=== PATIENT | male | born 1970 | race Caucasian/White ===

== ENCOUNTER 2019-07-20 07:45 | Observation (INO) ==
[2019-07-20] MEDS ORDERED: NS 1,000 ML IV ONE ×2 (08:00)
[2019-07-20] MEDS ORDERED: DUONEB (A & A) INH ONE ×2 (08:01→11:25)
--- NOTE | 2019-07-20 08:07 | PROVIDER DOCUMENTATION ---
HPI-Respiratory General - General Chief Complaint: SEPSIS ALERT - D Stated Complaint: SOB Time Seen by Provider: 07/20/19 08:00 Source: patient Allergies/Adverse Reactions: Patient Allergies Allergy/AdvReac Type Severity Reaction Status Date / Time No Known Allergies Allergy Verified 07/20/19 08:05 Home Medications: Home Medication List Medication Instructions Recorded Confirmed Last Taken Type NK [No Home Medications] 07/20/19 07/20/19 Unknown History - History of Present Illness-Resp Nature of Presenting Problem: Patient has had trouble breathing since Sunday. He has fever and cough. H e smokes, but denies vaping. Denies travel. Cough is nonproductive Quality of Pain: reports: none Severity in ED: reports: severe Onset/Duration: reports: 3 days ago Timing: reports: still present Context: denies: recent foreign travel, insect bite (possible tick), recent chemotherapy, multiple patients with similar complaints, recent URI, out of meds, sports/exercise, aspiration/choking, other Exposure: reports: unknown cause Cough Quality/Degree: reports: moderate, dry cough Episode Frequency: rare episodes Current Respiratory Medication Therapy: Initiated none Modifying Factors: improves with: nothing Associated Symptoms: reports: cough, shortness of breath, wheezing Similar Symptoms Previously?: No Recently seen or treated by another doctor?: No Review of Systems - Adult - REVIEW OF SYSTEMS - ADULT Constitutional: reports: chills, fever Eyes: reports: no symptoms reported Ears, Nose, Mouth & Throat: reports: no symptoms reported Cardiovascular: reports: no symptoms reported Respiratory: reports: see HPI Gastrointestinal: reports: no symptoms reported Genitourinary: reports: no symptoms reported Musculoskeletal: reports: no symptoms reported Integumentary: reports: no symptoms reported Neurological: reports: no symptoms reported Psychiatric: reports: no symptoms reported Endocrine: reports: no symptoms reported Hematologic/Lymphatic: reports: no symptoms reported Allergic/Immunologic: reports: hay fever (occationally) Past History - Adult - PAST MEDICAL HISTORY-ADULT Review of Records: reports: Old Records Reviewed, Nursing Assessment Review Physical Exam-General - PHYSICAL EXAM-ADULT Initial Vital Signs Reviewed: Yes - CONSTITUTIONAL General Appearance: moderate distress - EYES Eyes: PERRL/EOMI, pink conjunctivae - HEAD, EARS, NOSE, MOUTH & THROAT HENMT: normocephalic/atraumatic, moist mucous membranes, normal ENT inspection, TMs normal, pharynx normal - NECK Neck: non-tender, full range of motion, supple - RESPIRATORY Respiratory: accessory muscle use, wheezing - CARDIOVASCULAR Cardiovascular: normal peripheral pulses, regular rate, rhythm, no edema, no gallop, no JVD, no murmur - GASTROINTESTINAL (ABDOMEN) Abdominal Exam: normal bowel sounds, non tender, soft - LYMPHATIC Lymphatic: no adenopathy - MUSCULOSKELETAL Back Exam: normal inspection, no CVA tenderness, no vertebral tenderness Extremity: normal range of motion, non-tender, normal gait - SKIN Integumentary: normal color, diaphoresis - NEUROLOGIC Neurologic: grossly normal - PSYCHIATRIC Psych/Mental Status: normal mood/affect Progress - PLAN OF CARE/RESULTS Progress/Plan/Lab Results: Vital Signs - 8 hr 07/20/19 07:49 07/20/19 08:23 07/20/19 08:53 Temperature 100.9 F H Pulse Rate 111 H 112 H 103 H Respiratory Rate 30 H 22 26 H Blood Pressure 154/91 124/76 O2 Sat by Pulse Oximetry 88 L 94 L 94 L 07/20/19 09:34 07/20/19 10:21 07/20/19 11:19 Temperature 101.1 F H 99 F 99.3 F Pulse Rate 97 H 91 H 96 H Respiratory Rate 24 24 39 H Blood Pressure 109/72 112/75 133/90 O2 Sat by Pulse Oximetry 93 L 95 89 L 07/20/19 08:05 Influenza Screen - Final Nasopharyngeal Laboratory Results - last 24 hr 07/20/19 07/20/19 07/20/19 08:06 08:06 08:06 WBC RBC Hgb Hct MCV MCH MCHC RDW Std Deviation Plt Count MPV Immature Gran % (Auto) Neut % (Auto) Lymph % (Auto) [place] % (Auto) Eos % (Auto) Baso % (Auto) Immature Gran # (Auto) Neut # (Auto) Lymph # (Auto) [place] # (Auto) Eos # (Auto) Baso # (Auto) PT INR PTT (Actin FS) Specimen Type Sample Site pH pCO2 pO2 HCO3 Base Excess Oxyhemoglobin ABG O2 Sat (Calculated) ABG O2 Saturation ABG Carboxyhemoglobin ABG Methemoglobin Ty Test A-a O2 Difference Total Hemoglobin Lactate Liter Flow Blood Gas Modality FiO2 % Sodium 132 L Potassium 4.1 Chloride 96 L Carbon Dioxide 21 L Anion Gap 15 BUN 13 Creatinine 0.9 Estimated GFR/1.73 m2 > 60 BUN/Creatinine Ratio 14 Glucose 124 H Calculated Osmolality 266 Calcium 9.0 Total Bilirubin 0.40 AST 30 ALT 30 Alkaline Phosphatase 99 Creatine Kinase 298 H Creatine Kinase Index 1.4 CK-MB (CK-2) 4.08 Troponin T High Sens 7 Total Protein 7.3 Albumin 4.7 Globulin 2.6 Albumin/Globulin Ratio 1.8 Plasma Lactate 1.0 Urine Source Urine Color Urine Turbidity Urine pH Ur Specific [place] Urine Protein Ur Glucose (Stick) Ur Ketones (Stick) Urine Blood Urine Nitrite Urine Bilirubin Urobilinogen Dipstick Urine Leukocytes Urine WBC (Auto) Urine RBC (Auto) U Epithel Cells (Auto) Urine Bacteria (Auto) 07/20/19 07/20/19 07/20/19 08:06 08:06 08:10 WBC 11.85 H RBC 5.54 Hgb 17.1 Hct 51.4 MCV 92.8 MCH 30.9 MCHC 33.3 RDW Std Deviation 13.0 Plt Count 239 MPV 10.7 H Immature Gran % (Auto) 0.3 Neut % (Auto) 86.4 H Lymph % (Auto) 5.1 L [place] % (Auto) 7.9 Eos % (Auto) 0.0 Baso % (Auto) 0.3 Immature Gran # (Auto) 0.03 Neut # (Auto) 10.24 H Lymph # (Auto) 0.61 L [place] # (Auto) 0.94 H Eos # (Auto) 0.00 Baso # (Auto) 0.03 PT 13.8 INR 1.05 PTT (Actin FS) 27.6 Specimen Type ARTERIAL Sample Site R RADIAL pH 7.41 pCO2 36 pO2 65 HCO3 23.7 Base Excess -1.3 Oxyhemoglobin 92.5 L ABG O2 Sat (Calculated) 23.1 H ABG O2 Saturation 96.3 ABG Carboxyhemoglobin 2.90 H ABG Methemoglobin 1.0 Ty Test YES A-a O2 Difference 118.0 Total Hemoglobin 17.8 H Lactate 1.00 Liter Flow 3.0 Blood Gas Modality [place]ULA FiO2 % 32.0 Sodium Potassium Chloride Carbon Dioxide Anion Gap BUN Creatinine Estimated GFR/1.73 m2 BUN/Creatinine Ratio Glucose Calculated Osmolality Calcium Total Bilirubin AST ALT Alkaline Phosphatase Creatine Kinase Creatine Kinase Index CK-MB (CK-2) Troponin T High Sens Total Protein Albumin Globulin Albumin/Globulin Ratio Plasma Lactate Urine Source Urine Color Urine Turbidity Urine pH Ur Specific [place] Urine Protein Ur Glucose (Stick) Ur Ketones (Stick) Urine Blood Urine Nitrite Urine Bilirubin Urobilinogen Dipstick Urine Leukocytes Urine WBC (Auto) Urine RBC (Auto) U Epithel Cells (Auto) Urine Bacteria (Auto) 07/20/19 08:40 WBC RBC Hgb Hct MCV MCH MCHC RDW Std Deviation Plt Count MPV Immature Gran % (Auto) Neut % (Auto) Lymph % (Auto) [place] % (Auto) Eos % (Auto) Baso % (Auto) Immature Gran # (Auto) Neut # (Auto) Lymph # (Auto) [place] # (Auto) Eos # (Auto) Baso # (Auto) PT INR PTT (Actin FS) Specimen Type Sample Site pH pCO2 pO2 HCO3 Base Excess Oxyhemoglobin ABG O2 Sat (Calculated) ABG O2 Saturation ABG Carboxyhemoglobin ABG Methemoglobin Ty Test A-a O2 Difference Total Hemoglobin Lactate Liter Flow Blood Gas Modality FiO2 % Sodium Potassium Chloride Carbon Dioxide Anion Gap BUN Creatinine Estimated GFR/1.73 m2 BUN/Creatinine Ratio Glucose Calculated Osmolality Calcium Total Bilirubin AST ALT Alkaline Phosphatase Creatine Kinase Creatine Kinase Index CK-MB (CK-2) Troponin T High Sens Total Protein Albumin Globulin Albumin/Globulin Ratio Plasma Lactate Urine Source CLEAN CATCH Urine Color YELLOW Urine Turbidity CLEAR Urine pH 6.0 Ur Specific [place] 1.026 Urine Protein 70 A Ur Glucose (Stick) NEGATIVE Ur Ketones (Stick) TRACE A Urine Blood MODERATE A Urine Nitrite NEGATIVE Urine Bilirubin NEGATIVE Urobilinogen Dipstick NORMAL Urine Leukocytes NEGATIVE Urine WBC (Auto) <10 Urine RBC (Auto) <10 U Epithel Cells (Auto) <10 Urine Bacteria (Auto) NEGATIVE Orders Category Date Time Status Cardiac Monitoring DIRECTED Care 07/20/19 07:54 Active IV Insertion ORDERED Care 07/20/19 07:54 Completed Notify MD of + Sepsis Screen NOW Care 07/20/19 07:54 Active Notify Physician As Ordered Care 07/20/19 07:54 Active CHEST-1 VIEW [RAD] Stat Exams 07/20/19 07:54 Completed ABG [RESP] Routine Lab 07/20/19 08:10 Completed BLOOD CULTURE [BLDCUL] Stat Lab 07/20/19 08:02 Results CBC WITH DIFF [HEME] Stat Lab 07/20/19 08:06 Completed CK PROFILE [SP CHEM] Stat Lab 07/20/19 08:06 Completed COMPREHENSIVE METABOLIC PANEL [CHEM] Stat Lab 07/20/19 08:06 Completed INFLUENZA SCREEN A/B Stat Lab 07/20/19 08:05 Completed LACTATE, PLASMA [CHEM] Lab 07/20/19 08:06 Completed LACTATE, PLASMA [CHEM] Lab 07/20/19 11:00 Received LACTATE, PLASMA [CHEM] Lab 07/20/19 14:00 Uncollected PROTIME WITH INR [COAG] Stat Lab 07/20/19 08:06 Completed PTT [COAG] Stat Lab 07/20/19 08:06 Completed TROPONIN T HIGH SENSITIVITY Stat Lab 07/20/19 08:06 Completed URINALYSIS W/POSS RFLX CULT [URINALYSIS] Stat Lab 07/20/19 08:40 Completed 0.9% Sodium Chloride Inj [Ns] 1,000 ml Med 07/20/19 08:00 Discontinued IV 999 mls/hr 0.9% Sodium Chloride Inj [Ns] 1,000 ml Med 07/20/19 08:00 Discontinued IV 999 mls/hr Acetaminophen [Tylenol] Med 07/20/19 08:25 Discontinued 1,000 mg PO NOW ONE Albuterol 2.5MG/Ipratrop 0.5MG [Duoneb (A & A)] Med 07/20/19 08:01 Discontinued 3 ml INH NOW ONE Albuterol 2.5MG/Ipratrop 0.5MG [Duoneb (A & A)] Med 07/20/19 11:25 Discontinued 3 ml INH NOW ONE Dexamethasone [Decadron] Med 07/20/19 11:26 Discontinued 10 mg IV NOW ONE Aerosol Treatments Routine Oth 07/20/19 08:01 Completed Aerosol Treatments Routine Oth 07/20/19 11:26 Active Aerosol Treatments Stat Oth 07/20/19 08:01 Completed Aerosol Treatments Stat Oth 07/20/19 11:26 Active Oxygen Device Stat Oth 07/20/19 07:54 Completed EKG [EKG] Stat Ther 07/20/19 07:54 Draft Result Diagrams: 07/20/19 08:06 07/20/19 08:06 - REASSESSMENT Reassessment #1 Time Reassessed: 11:18 Status: unchanged (Crackles in both lung jiang. Oxygen desaturation when off supplamental O2) - EKG 1 Time of EKG reading by physician:: 08:24 EKG Read and Signed by:: Lang West EKG Interpretation (*Must complete 3 of following elements*): Normal Rate: 106 Rhythm: sinus [place]: normal QRS: normal DE Interval: normal ST Wave: normal - CONSULTS/PCP/HOSPITALIST Notification #1 *Consult/PCP/Hospitalist*: Margo LIM Time Discussed: 11:32 (Dr Mann) Consult Disposition: Will see in ED Departure - Departure Date of Disposition Decision: 07/20/19 Time of Disposition Decision: 11:32 DIAGNOSIS: Hypoxemia Fever Qualifiers: Fever type: due to other condition Qualified Code(s): R50.81 - Fever presenting with conditions classified elsewhere Disposition: ADMITTED INPATIENT 09 Certified Medical Emergency: Emergent Condition: Fair Referrals and Follow-Ups: None,PCP [Primary Care Provider] - - Critical Care Note This patient required my direct & personal management of CC.: No Attestation - Physician/ MOLLY Attestation Patient care was provided by Advanced Practice Provider:: No The physician spent face to face time with patient:: Yes Advanced Practice Provider documentation review:: Supervising physician onsite and consulted in the evaluation and care of this patient. The physician did have a face to face encounter with the patient.
[2019-07-20 08:17] LABS: ALLEN TEST YES; BE -1.3 mmoll (-3.0-3.0); BLOOD TYPE ARTERIAL; HCO3-(ACT) 23.7 mmoll (20.0-26.0); MODALITY CANNULA; O2(CT) 23.1 mL/dL (15.0-23.0); O2HB 92.5 % (95.0-99.0); PCO2(98.6) 36 mmHg (35-45); PO2(98.6) 65 mmHg (60-100); SAMPLE BLOOD; SAO2 96.3 % (95.0-100.0); THB 17.8 g/dL (11.5-17.4); pH(98.6) 7.41 (7.35-7.45)
[2019-07-20 08:25] LABS: BASO# 0.03 X1000 (0.0-0.2); BASO% 0.3 % (0.0-0.8); HEMATOCRIT 51.4 % (42.0-52.0); HEMOGLOBIN 17.1 g/dL (14.0-18.0); IMM GRAN# 0.03 X1000 (0.0-0.04); IMM GRAN% 0.3 % (0.0-0.5); LYMPH# 0.61 X1000 (1.2-3.4); LYMPH% 5.1 % (20.5-51.1); MCH 30.9 PG (27-31); MCHC 33.3 g/dL (33-37); MCV 92.8 FL (81-99); MONO# 0.94 X1000 (0.11-0.59); MONO% 7.9 % (1.7-9.3); MPV 10.7 FL (7.4-10.4); NEUT# 10.24 X1000 (1.4-6.5); NEUT% 86.4 % (42.2-75.2); PLT 239 X1000 (130-400); RBC 5.54 XMIL (4.7-6.1); WBC 11.85 X1000 (4.8-10.8)
[2019-07-20] MEDS ORDERED: TYLENOL PO ONE (08:25)
[2019-07-20 08:31] LABS: INR 1.05; PROTIME 13.8 Seconds (11.0-16.0)
[2019-07-20 08:32] LABS: PTT 27.6 Seconds (22.3-41.8)
--- NOTE | 2019-07-20 08:32 | Diag Imaging Result Doc PS360 ---
EXAM: CHEST-1 VIEW - 07/20/2019 HISTORY: low sat TECHNIQUE: Portable chest one view COMPARISON: None. FINDINGS: Heart size is normal. There is mild prominence of central markings. There is no consolidation, pleural effusion, or pneumothorax identified. There is accessory azygos fissure noted. IMPRESSION: Mild prominence of central markings. No other evidence of acute disease. Electronically signed by To Mosley 07/20/2019 8:29 AM
[2019-07-20 08:37] LABS: AGAP 15; ALB/GLOB RATIO 1.8; ALBUMIN 4.7 g/dL (3.5-5.0); ALKALINE PHOSPHATASE 99 U/L (32-122); BUN 13 mg/dL (8-22); CHLORIDE 96 mmol/L (98-107); COSMO 266; CREATININE 0.9 mg/dL (0.7-1.2); ESTIMATED GFR > 60; GLUCOSE 124 mg/dL (70-104); GOT 30 U/L (10-34); GPT 30 U/L (10-44); POTASSIUM 4.1 mmol/L (3.5-5.1); SODIUM 132 mmol/L (136-145); TCO2 21 mmol/L (25-35); TOTAL PROTEIN 7.3 g/dL (6.3-8.3)
[2019-07-20 08:39] LABS: CK PROFILE 298 U/L (24-204)
[2019-07-20 08:45] LABS: URINE SOURCE CLEAN CATCH
[2019-07-20 09:02] LABS: CK INDEX 1.4 (0.0-2.5); CK-MB 4.08 ng/mL (0.0-5.0)
[2019-07-20 09:20] LABS: BILIRUBIN URINE NEGATIVE (NEGATIVE); BLOOD URINE MODERATE (NEGATIVE); COLOR YELLOW; GLUCOSE URINE NEGATIVE (NEGATIVE); KETONE URINE TRACE mg/dL (NEGATIVE); LEUKOCYTES URINE NEGATIVE (NEGATIVE); NITRITE URINE NEGATIVE (NEGATIVE); PROTEIN URINE 70 mg/dL (NEGATIVE); SP GRAVITY URINE 1.026; TURBIDITY URINE CLEAR (CLEAR); UROBILINOGEN URINE NORMAL (NORMAL)
[2019-07-20 09:22] LABS: UR EPITHELIAL CELLS <10 /HPF (<10); URINE BACTERIA NEGATIVE /HPF; URINE RBC <10 /HPF (<10); URINE WBC <10 /HPF (<10)
--- NOTE | 2019-07-20 09:41 | EKG Report ---
Test Performed on : 07/20/2019 08:22:00 AM Test Reason : diff breath Blood Pressure : / mmHG Vent. Rate : 106 BPM Atrial Rate : 106 BPM P-R Int : 132 ms QRS Dur : 076 ms QT Int : 314 ms P-R-T Axes : 067 051 068 degrees QTc Int : 417 ms Sinus tachycardia. Otherwise normal ECG No previous ECGs available Unconfirmed Result
[2019-07-20] MEDS ORDERED: DECADRON IV ONE (11:26)
[2019-07-20] MEDS ORDERED: ROCEPHIN 2 GM in NS 50 ML IV ONE (12:13)
[2019-07-20] MEDS: TAMIFLU PO SCH ×2 (12:35→20:31)
[2019-07-20] MEDS ORDERED: DUONEB (A & A) INH PRN (13:10)
[2019-07-20] MEDS ORDERED: MOTRIN PO PRN (13:10)
[2019-07-20] MEDS ORDERED: LOVENOX 1 MG/KG SUBQ ONE (13:10)
[2019-07-20] MEDS ORDERED: LOVENOX SUBQ ONE (13:30)
[2019-07-20] MEDS: NS 1,000 ML IV SCH (13:46)
--- NOTE | 2019-07-20 13:54 | Diag Imaging Result Doc PS360 ---
EXAM: CT ANGIOGRAM PULMONARY ARTERIES - 07/20/2019 HISTORY: r/o PE and PNA TECHNIQUE: CT angiogram pulmonary arteries with intravenous contrast. Axial, coronal, and 3-D MIP images are obtained. COMPARISON: 08/17/2020 view chest FINDINGS: There are no filling defects identified in the pulmonary arteries. There is no indication of aortic dissection. There is mild infiltrate at the medial right upper lobe. There is minimal infiltrate at the anterior medial inferior right lower lobe. The remainder of the lungs appear clear. There is no pleural effusion or pneumothorax identified. There is accessory azygos fissure noted. IMPRESSION: No evidence of pulmonary embolism. Mild infiltrate at medial right upper lobe, which may relate to pneumonitis/pneumonia. Electronically signed by To Mosley 07/20/2019 1:52 PM
[2019-07-20] MEDS: TYLENOL PO PRN (15:24)
--- NOTE | 2019-07-20 15:31 | HISTORY AND PHYSICAL ---
PRIMARY CARE PROVIDER: None. CHIEF COMPLAINT: Aching, coughing, shortness of breath that started Sunday night. HISTORY OF PRESENT ILLNESS: Mr. Contreras is a 49-year-old, male who claims no past medical history besides hayfever, tobacco use, and 6 to 7 beers per day, who reported on Sunday, he started having some wheezing Sunday night, shortness of breath, cough with clear sputum production, muscle aches and pains that started from his head to his toes, and muscular center type chest pain, worsening with cough, probable fever. He reports he was freezing then burning up. He had some bouts of diarrhea last night. Really no appetite. Denied any cardiac type chest pain. No nausea, no vomiting, no abdominal pain. No hematuria or dysuria. He came to the ED today because his shortness of breath got worse. Upon arrival, his temperature was 100.9 degrees, his pulse rate was 130, respiratory rate was 30, he was 88% on room air. Blood pressure was a little on the high side. He was placed on supplemental O2, completed a sepsis workup, placed on bronchodilators, given a dose of steroids. Two sets of plasma lactates have been negative. He was given a 2 L bolus of fluid, 1000 mg of Tylenol. His flu screen is negative. Chest x-ray does not show any pneumonia. His urinalysis is negative. His white count is only mildly elevated at 11. Since he had initial sepsis like picture upon evaluation, we will go ahead and dose him with 2 g of Rocephin. Continue treatment for COPD exacerbation. We will rule out PE with a CTA of the chest. They did try to wean him off his supplemental O2 and his O2 saturations dropped back down into the 80s and he became tachypneic again. We will go ahead and initiate him on Tamiflu as well, given his symptoms. PAST MEDICAL HISTORY: Seasonal allergies, mainly hayfever, tobacco use, daily alcohol use. PAST SURGICAL HISTORY: Tonsillectomy. ALLERGIES: No known drug allergies. HOME MEDICATIONS: None. FAMILY HISTORY: Father with depression, COPD, and Alzheimer's. Denied any coronary artery disease, diabetes, or cancer. SOCIAL HISTORY: One pack per day smoker since his late teens. Six to seven beers per day. Occasional wine. He is with 2 sons. 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 No vaping. No marijuana. No illicit drug use. REVIEW OF SYSTEMS: Twelve-point review of systems completely negative except for those mentioned in the HPI. PHYSICAL EXAMINATION: VITAL SIGNS: Temperature is 100.1 degrees, heart rate 96, respirations 22, blood pressure 140/88, O2 is 95% on 3 L nasal cannula. GENERAL: Mr. Contreras is a 49-year-old male who is sitting up in the bed. He is still somewhat short of breath, red face, glossy eyes, but in no acute distress. HEENT: Atraumatic, normocephalic. PERRL. NECK: Supple. Trachea midline. CARDIOVASCULAR: S1, S2 appreciated. No murmurs, gallops, rubs noted. RESPIRATORY: Lungs sound relatively clear. He has some decreased airway entry. However, he is not really taking any deep breaths, just short, choppy ones. I did not appreciate any rales, rhonchi, or wheezes. GI: Soft, nontender, nondistended. Positive bowel sounds in 4 quadrants. EXTREMITIES: Lower extremities were negative for edema. I could not assess pedal pulses. He still had his tennis shoes on and laced up. Radial pulses were bounding. No signs of clubbing or cyanosis. SKIN: Warm, dry, and intact. NEUROLOGIC: No focal deficits noted. DIAGNOSTIC DATA: Pending CTA of the chest. Chest x-ray, mild prominence of central markings. No other evidence of acute disease. LABORATORY DATA: White count 11, hemoglobin and hematocrit 17 and 51, platelet count of 239,000. Chemistry: Sodium 132, potassium 4.1, BUN 13, creatinine 0.1, blood glucose is 124. CK is 248. ProBNP is 232. First lactate 1, second lactate is 1.8. Urinalysis negative for bacteria, negative for nitrites, negative for leukocyte, moderate blood, trace ketones, 70 protein. ASSESSMENT AND PLAN: 1. Febrile illness. Did an initial sepsis workup. He has gotten a 2 L bolus. We will given him a 2 g dose of intravenous Rocephin. Two lactates have been negative. Blood cultures have been obtained. Have no clear source of infection at this time. 2. Flu-like symptoms. We will go ahead and treat him with Tamiflu given his body aches and pains, and high fever. 3. Probable mild chronic obstructive pulmonary disease exacerbation. We will continue with bronchodilator, steroids, supplemental oxygen. 4. Hypoxemia. Continue supplemental oxygen. We will rule out pulmonary embolism with a CTA of the chest. Chest x-ray did not show any pneumonia. 5. Tobacco use and abuse. We will continue with smoking cessation education as well as the means to quit. 6. Alcohol use, six to seven beers per day. 7. Further recommendation to follow physician evaluation, laboratory and diagnostic data. Dictated by CARINA Jimenez for Jc Mann MD Patient with hypoxic respiratory failure, likely viral upper respiratory infection causing copd exacerbation. suspect influenza despite negative swab. no sign of bacterial infection so far but will get CT chest to make sure and give empiric antibiotics for tonight. mildly decreased breath sounds on exam but only minimal wheezing. MTDD
[2019-07-20] MEDS: DUONEB (A & A) INH SCH ×3 (15:34→23:31)
[2019-07-20] MEDS ORDERED: ZITHROMAX 500 MG/NS 500 MG/250 ML IVPB IV SCH (16:00)
[2019-07-20] MEDS: SOLU-MEDROL IV SCH (20:31)
[2019-07-21] MEDS: NS 1,000 ML IV SCH (03:01)
[2019-07-21] MEDS: SOLU-MEDROL IV SCH ×2 (03:01→13:28)
[2019-07-21] MEDS: TYLENOL PO PRN (03:14)
[2019-07-21] MEDS: DUONEB (A & A) INH SCH ×4 (03:42→16:07)
--- NOTE | 2019-07-21 07:32 | Diag Imaging Result Doc PS360 ---
EXAM: CHEST-PORTABLE HISTORY: short of breath TECHNIQUE: Single view COMPARISON: 07/20/2019 FINDINGS: The lungs are well expanded. The heart is not enlarged. The vessels are not distended. There are mild increased interstitial markings in the left costophrenic angle. No effusion identified. IMPRESSION: Small left basilar infiltrate Electronically signed by Rashad Arellano 07/21/2019 7:29 AM
[2019-07-21 07:49] LABS: BASO# 0.01 X1000 (0.0-0.2); BASO% 0.1 % (0.0-0.8); HEMATOCRIT 46.4 % (42.0-52.0); IMM GRAN# 0.02 X1000 (0.0-0.04); IMM GRAN% 0.1 % (0.0-0.5); LYMPH# 0.78 X1000 (1.2-3.4); LYMPH% 5.4 % (20.5-51.1); MCH 30.7 PG (27-31); MCHC 32.3 g/dL (33-37); MCV 95.1 FL (81-99); MONO# 0.72 X1000 (0.11-0.59); MPV 10.7 FL (7.4-10.4); NEUT# 12.91 X1000 (1.4-6.5); NEUT% 89.4 % (42.2-75.2); PLT 229 X1000 (130-400); RBC 4.88 XMIL (4.7-6.1); WBC 14.44 X1000 (4.8-10.8)
[2019-07-21 08:07] LABS: AGAP 13; ALB/GLOB RATIO 1.4; ALBUMIN 3.7 g/dL (3.5-5.0); ALKALINE PHOSPHATASE 71 U/L (32-122); BANDS 4 % (0-1); BUN 11 mg/dL (8-22); CHLORIDE 106 mmol/L (98-107); COSMO 288; CREATININE 0.8 mg/dL (0.7-1.2); ESTIMATED GFR > 60; GLUCOSE 155 mg/dL (70-104); GOT 25 U/L (10-34); GPT 22 U/L (10-44); LYMPHS 2 % (21-51); MONO 2 % (1-9); POTASSIUM 3.8 mmol/L (3.5-5.1); SEGS 92 % (42-75); SODIUM 143 mmol/L (136-145); TCO2 24 mmol/L (25-35); TOTAL BILIRUBIN 0.18 mg/dL (0.20-1.00); TOTAL PROTEIN 6.4 g/dL (6.3-8.3)
[2019-07-21] MEDS: TAMIFLU PO SCH (08:47)
[2019-07-21] MEDS ORDERED: ROCEPHIN 1 GM in NS 50 ML IV SCH (12:30)
[2019-07-21] MEDS ORDERED: NICODERM PATCH TD PRN (13:11)
[2019-07-21 15:36] VITALS: BP 136/79
== END 2019-07-21 18:54 | disposition home or self-care (01) ==
LOC: ED 07:45 → SUATTDRO 07:46 → INTOOBSV 07:46 → EDIPHOLD 07:46 → 3N 14:42
PROVIDERS: ATTEND Internal Medicine